=== PATIENT | female | born 1985 ===

== ENCOUNTER 2021-03-14 11:38 | Emergency (ER) | payer BC ==
[2021-03-14] MEDS ORDERED: ONDANSETRON 4 MG ODT TAB PO ONE (13:10)
[2021-03-14] MEDS ORDERED: FAMOTIDINE 20 MG TAB PO ONE (13:10)
--- NOTE | 2021-03-14 13:11 | Emergency Department Report ---
ED N/V/D HPI - General Chief complaint: Nausea/Vomiting/Diarrhea Stated complaint: VOMITING Time Seen by Provider: 03/14/21 12:58 Source: patient Mode of arrival: Wheelchair Limitations: No Limitations - History of Present Illness Initial comments: 35-year-old female with a past medical history of hypertension presents to the ER today with complaints of nausea and vomiting and diarrhea. Patient states that her symptoms started this morning. She reports multiple episodes of vomiting this morning. She states emesis mainly bilious. She reports 3 epi sodes of loose stools today. And she reports epigastric discomfort. She denies any fever chills, UTI symptoms, abnormal vaginal symptoms, chest pain or shortness of breath. Patient does admit to drinking every 3 to 4 days/week. She states that she drinks liquor and or beer. She admits that she did have a few drinks yesterday. She denies any illicit drug use. She denies any history of peptic ulcer disease or pancreatitis. MD complaint: nausea, vomiting, abdominal pain -: Sudden - Related Data Previous Rx's Medication Instructions Recorded Last Taken Type Famotidine [Pepcid] 40 mg PO QHS #30 tablet 03/14/21 Unknown Rx Ondansetron [Zofran Odt] 4 - 8 mg PO Q8HR PRN #15 tab.rapdis 03/14/21 Unknown Rx Pantoprazole [Protonix] 40 mg PO QDAY #30 tablet 03/14/21 Unknown Rx Promethazine [Phenergan] 25 mg WA Q6HR PRN #15 supp.rect 03/14/21 Unknown Rx Allergies Allergy/AdvReac Type Severity Reaction Status Date / Time No Known Allergies Allergy Unverified 03/14/21 16:47 ED Review of Systems ROS: Stated complaint: VOMITING Other details as noted in HPI Comment: All other systems reviewed and negative Constitutional: denies: chills, diaphoresis, fever, malaise, weakness Eyes: denies: eye pain, eye discharge, vision change ENT: denies: ear pain, throat pain, dental pain, hearing loss, congestion Respiratory: denies: cough, shortness of breath, SOB at rest, wheezing Cardiovascular: denies: chest pain, palpitations Gastrointestinal: abdominal pain, nausea, vomiting. denies: diarrhea, constipation, hematemesis, hematochezia Genitourinary: denies: urgency, dysuria, frequency, hematuria, discharge, ab normal menses Musculoskeletal: denies: back pain, joint swelling, arthralgia Skin: denies: rash, lesions Neurological: denies: headache, weakness, numbness, paresthesias, confusion, abnormal gait, vertigo Psychiatric: denies: anxiety, depression, auditory hallucinations, visual hallucinations, homicidal thoughts, suicidal thoughts Hematological/Lymphatic: denies: easy bleeding, easy bruising ED Past Medical Hx - Past Medical History Previous Medical History?: Yes Hx Headaches / Migraines: Yes - Surgical History Past Surgical History?: No - Social History Smoking Status: Never Smoker Substance Use Type: Alcohol - Medications Home Medications: Home Medications Medication Instructions Recorded Confirmed Last Taken Type Famotidine [Pepcid] 40 mg PO QHS #30 tablet 03/14/21 Unknown Rx Ondansetron [Zofran Odt] 4 - 8 mg PO Q8HR PRN #15 tab.rapdis 03/14/21 Unknown Rx Pantoprazole [Protonix] 40 mg PO QDAY #30 tablet 03/14/21 Unknown Rx Promethazine [Phenergan] 25 mg WA Q6HR PRN #15 supp.rect 03/14/21 Unknown Rx ED Physical Exam - General Limitations: No Limitations General appearance: alert, in distress, other (Patient appears uncomfortable, she is actively vomiting in triage) - Head Head exam: Present: atraumatic, normocephalic, normal inspection - Eye Eye exam: Present: normal appearance, PERRL, EOMI Pupils: Present: normal accommodation - ENT ENT exam: Present: normal exam, mucous membranes moist - Neck Neck exam: Present: normal inspection, full ROM - Respiratory Respiratory exam: Present: normal lung sounds bilaterally. Absent: respiratory distress - Cardiovascular Cardiovascular Exam: Present: regular rate, normal rhythm, normal heart sounds - GI/Abdominal GI/Abdominal exam: Present: soft. Absent: distended, tenderness, guarding, rebound - Neurological Exam Neurological exam: Present: alert, oriented X3, CN II-XII intact, normal gait - Psychiatric Psychiatric exam: Present: normal affect, normal mood - Skin Skin exam: Present: intact ED Course Vital Signs 03/14/21 03/14/21 11:59 17:04 Temperature 97.9 F Pulse Rate 68 60 Respiratory 16 16 Rate Blood Pressure 165/105 Blood Pressure 180/97 [Right] O2 Sat by Pulse 100 100 Oximetry - Reevaluation(s) Reevaluation #1: 03/14/21 15:07 Patient reports she is still nauseous and vomiting despite the Zofran. She stat es that she vomited the Pepcid. We will start IV fluids and IV Reglan. Reevaluation #2: 03/14/21 17:17 Patient currently receiving IV fluids, and she also received Reglan and Benadryl. She reports feeling better after the meds. She is actually asking for something to drink. Glass of water was given to the patient and she was observed drinking water and tolerating well. Labs reviewed and showed nothing acute. She does not complain of any abdominal pain at this time and she had a soft nontender abdomen on exam. She is not toxic or ill-appearing. At this time is no indication for further testing or admission. Patient will be discharged home with Rx for nausea as well as Pepcid and Protonix for suspected gastritis. Discussed diagnosis and treatment plan with patient. Patient stable at time of discharge. ED Medical Decision Making - Lab Data Result diagrams: 03/14/21 12:43 03/14/21 12:43 Critical care attestation.: If time is entered above; I have spent that time in minutes in the direct care of this critically ill patient, excluding procedure time. ED Disposition Clinical Impression: Nausea and vomiting, Gastritis Disposition: DC-01 TO HOME OR SELFCARE Is pt being admited?: No Does the pt Need Aspirin: No Condition: Stable Instructions: Gastritis, Adult, [id number], Nausea and Vomiting, Adult Additional Instructions: Take the zofran, pepcid and protonix as prescribed. I recommend avoiding alcohol, spicy foods, acidic foods, and NSAID. Follow up with PCP listed on your discharge instructions next week. You can also follow-up with the GI specialis t for further evaluation including an upper endoscopy especially if your symptoms persist. If your symptoms worsens return to the ER. Prescriptions: Famotidine [Pepcid] 40 mg PO QHS #30 tablet Promethazine [Phenergan] 25 mg WA Q6HR PRN #15 supp.rect PRN Reason: Nausea/vomiting Pantoprazole [Protonix] 40 mg PO QDAY #30 tablet Ondansetron [Zofran Odt] 4 - 8 mg PO Q8HR PRN #15 tab.rapdis PRN Reason: Nausea Referrals: [facility] [Provider Group] - 3-5 Days ANTONIETA GRAY MD [Staff Physician] - 3-5 Days Forms: Work/School Release Form(ED) Time of Disposition: 17:12
[2021-03-14 13:17] LABS: Hemoglobin 15.5 gm/dl (10.1-14.3); Mean Corpuscular HGB Conc 34 % (30-34); Mean Corpuscular Volume 98 fl (79-97); Platelet Count 244 K/mm3 (140-440); Red Blood Count 4.72 M/mm3 (3.65-5.03); Red Cell Distribution Width 14.7 % (13.2-15.2)
[2021-03-14 13:34] LABS: Alanine Aminotransferase 25 units/L (7-56); Albumin 4.7 g/dL (3.9-5); Blood Urea Nitrogen 11 mg/dL (7-17); Calcium 9.9 mg/dL (8.4-10.2); Hemolysis Index 15
[2021-03-14 13:42] LABS: BUN/Creatinine Ratio 16
[2021-03-14 14:08] LABS: Platelet Estimate Consistent w Auto; RBC Morphology Normal; Total Cells Counted 100
[2021-03-14] MEDS ORDERED: METOCLOPRAMIDE 10 MG/2 ML INJ IV ONE (15:06)
[2021-03-14] MEDS ORDERED: SODIUM CHLORIDE 0.9% 1000 ML 1,000 ML IV ONE (15:06)
[2021-03-14] MEDS ORDERED: diphenhydrAMINE 50 MG/ML VIAL IV ONE (15:07)
[2021-03-14 15:19] LABS: Bilirubin,Urine NEG (Negative); Blood,Urine NEG (Negative); Color,Urine Yellow (Yellow); Mucus,Urine 3+ /HPF
[2021-03-14 15:20] LABS: HCG Qualitative,Urine Negative (Negative)
[2021-03-14 17:04] VITALS: BP 180/97
== END 2021-03-14 17:53 | disposition home or self-care (01) ==
LOC: ED 11:38
DX: K29.70 Gastritis, unspecified, without bleeding (principal); R11.2 Nausea with vomiting, unspecified; G43.909 Migraine, unspecified, not intractable, without status migrainosus; Z79.899 Other long term (current) drug therapy
CPT/HCPCS: 36415; 80053; 81001; 81025; 83690; 85007; 85025; 96361; 96374; 96375; 99283; J1200; J2765; J7030; Q0162